=== PATIENT | male | born 1965 | race Caucasian/White ===

== ENCOUNTER 2018-10-13 09:57 | Emergency (ER) | payer OTHER, BC ==
[2018-10-13 10:03] VITALS: BP 126/73; PULSE 77; TEMP 98.4; BMI 31.1
--- NOTE | 2018-10-13 10:13 | PDOC ---
History of Present Illness - General Chief Complaint: Injury Stated Complaint: FALL Time Seen by Provider: 10/13/18 10:09 History Source: Patient Exam Limitations: No Limitations Past History - Travel Traveled outside of the country in the last 30 days: No Close contact w/someone who was outside of country & ill: No - Past Medical History Allergies/Adverse Reactions: Allergies Allergy/AdvReac Type Severity Reaction Status Date / Time No Known Allergies Allergy Verified 10/13/18 09:58 Home Medications: Ambulatory Orders Cyclobenzaprine HCl [Flexeril -] 10 mg PO HS #10 tablet 10/13/18 Ibuprofen 800 mg PO TID #30 tablet 10/13/18 Sertraline HCl [Zoloft] 200 mg PO DAILY 10/13/18 COPD: No Psychiatric Problems: Yes (anxiety /depression) - Surgical History GI Surgery: No - Immunization History Immunization Up to Date: No - Suicide/Smoking/Psychosocial Hx Smoking History: Never smoked Have you smoked in the past 12 months: No Information on smoking cessation initiated: No Hx Alcohol Use: No Drug/Substance Use Hx: No Review of Systems - Review of Systems Able to Perform ROS?: Yes Comments:: 10/13/18 10:12 CONSTITUTIONAL: Absent: fever, chills, diaphoresis, generalized weakness, malaise, loss of appetite MUSCULOSKELETAL: Present: R elbow pain with associated swelling, low back pain Absent: myalgia SKIN: Absent: rash, itching, pallor NEUROLOGIC: Absent: headache, focal weakness or paresthesias, dizziness, unsteady gait, seizure, mental status changes, bladder or bowel incontinence PSYCHIATRIC: Absent: anxiety, depression, suicidal or homicidal ideation, hallucinations. Is the patient limited Bangladeshi proficient: No *Physical Exam - Vital Signs Last Vital Signs Temp Pulse Resp BP Pulse Ox 98.4 F 77 16 126/73 98 10/13/18 10:00 10/13/18 10:00 10/13/18 10:00 10/13/18 10:00 10/13/18 10:00 - Physical Exam Comments: 10/13/18 10:12 GENERAL: Well developed, well nourished. Awake and alert. No acute distress. HEENT: Normocephalic, atraumatic. PERRLA, EOMI. No conjunctival pallor. Sclera are non- icteric. Moist mucous membranes. Oropharynx is clear. NECK: Supple. Full ROM. No JVD. Carotid pulses 2+ and symmetric, without bruits. No thyromegaly. No lymphadenopathy. MUSCULOSKELETAL TTP of the R paraspinous muscles, L3-L5, with palpable knot consistent with muscle spasm. (-) straight leg raise. (+) midline tenderness. Also with TTP of the R elbow over the medial epicondyle with associated swelling. Negative drop arm test on the R. Normal range of motion at all joints. No CVA tenderness. EXTREMITIES: No cyanosis. No clubbing. No edema. No calf tenderness. SKIN: Warm and dry. Normal capillary refill. No rashes. No jaundice. NEUROLOGICAL: Alert, awake, appropriate. Cranial nerves 2-12 intact. No deficits to light touch and temperature in face, upper extremities and lower extremities. No motor deficits in the in face, upper extremities and lower extremities. Normoreflexic in the upper and lower extremities. Normal speech. Toes are down- going bilaterally. Gait is normal without ataxia. Medical Decision Making - Medical Decision Making 10/13/18 10:32 The patient is a 53-year-old male with no past medical history who presents to the emergency department today for lower back pain and right elbow pain. The patient states he was at work and doing handiwork in the patient's driveway when he slipped on water running down the driveway. He states he landed on his right elbow. He also states that his R low back hurts. Pt states that he did not hit his head or lose consciousness. Denies fevers, chills, numbness and tinging, weakness to the affected extremity, bladder/bowel incontinence, and saddle anesthesia. A/P: fall -Pt with TTP of the R paraspinous muscles, L3-L5, with palpable knot consistent with muscle spasm. (-) straight leg raise. Also with TTP of the R elbow over the medial epicondyle with associated swelling. Negative drop arm test on the R. -No fever. No saddle anesthesia or bladder/bowel incontinence. No CVA tenderness. -Pt is neurologically intact on exam with no focal findings. -X-ray of the lumbar spine and R elbow obtained. Wet read shows: No acute fractures on the elbow x-ray. Possible bone cyst? will refer to ortho for further management. Lumbar spine without acute bony abnormalities. -Toradol given with relief of symptoms -DC home. Pt to f/u with her PCP. Ortho referral given. -I discussed the physical exam findings, ancillary test results and final diagnoses with the patient. I answered all of the patient's questions. The patient was satisfied with the care received and felt comfortable with the discharge plan and treatment plan. The Patient agrees to follow up with the primary care physician/specialist within 24-72 hours. Return precautions were given. *DC/Admit/Observation/Transfer Diagnosis at time of Disposition: Elbow pain Qualifiers: Laterality: right Qualified Code(s): M25.521 - Pain in right elbow Low back pain Qualifiers: Chronicity: acute Back pain laterality: bilateral Sciatica presence: without sciatica Qualified Code(s): M54.5 - Low back pain - Discharge Dispostion Disposition: HOME Condition at time of disposition: Stable Decision to Admit order: No - Referrals Referrals: Quinn Malave [Primary Care Provider] - Beau Rueda MD [Staff Physician] - - Patient Instructions Printed Discharge Instructions: DI for Low Back Pain, DI for Elbow Pain Additional Instructions: You were evaluated for your low back pain today. It is most likely due to a muscle spasm Please take the Motrin as directed Take the Flexiril every 8 hours the first day. Then take the medication at night only. Do not drink or drive after taking this medication as it may make you drowsy. You may apply warm compresses to the area. You were also evaluated for your elbow pain. There doesn't appear to be a fracture at this time There appears to be a bone cyst on your humerus (long arm bone) please follow up with orthopedics for further evaluation. Wear the sling for comfort. Please follow up with orthopedics if your symptoms do not improve this week; a referral has been provided to you Return to the ER for worsening pain despite treatment, numbness/weakness down the extremities, changes in the way you walk, numbness/tingling to the groin, if you have bladder/bowel incontinence, or if you have any changes in your symptoms. - Post Discharge Activity Forms/Work/School Notes: Back to Work
[2018-10-13] MEDS ORDERED: KETOROLAC TROMETHAMINE 60 MG/2 ML VIAL IM ONE (10:24)
[2018-10-13] MEDS ORDERED: LIDOCAINE 5% TOPICAL PATCH TP ONE (10:24)
[2018-10-13] MEDS ORDERED: KETOROLAC TROMETHAMINE 60 MG/2 ML VIAL ONE (10:31)
[2018-10-13] MEDS ORDERED: LIDOCAINE 5% TOPICAL PATCH ONE (10:31)
[2018-10-13] MEDS ORDERED: LIDOCAINE PATCH REMOVAL MC SCH (22:00)
== END 2018-10-13 12:05 | disposition home or self-care (01) ==
LOC: JERFT 09:57
PROC: 3E0233Z Introduction of Anti-inflammatory into Muscle, Percutaneous Approach (ICD-10-PCS; principal; 2018-10-13)
DX: M54.5 Low back pain (principal); M25.521 Pain in right elbow; W01.0XXA Fall on same level from slipping, tripping and stumbling without subsequent striking against object, initial encounter; Y93.89 Activity, other specified; Y92.014 Private driveway to single-family (private) house as the place of occurrence of the external cause; Y99.0 Civilian activity done for income or pay
CPT/HCPCS: 72100-TC-FY; 73070-TC-RT-FY; 99281-25